=== PATIENT | female | born 1975 | race American Indian/Alaskan Native ===

== ENCOUNTER 2016-07-22 17:20 | Emergency (ER) | payer SELFPAY ==
[2016-07-22 19:55] VITALS: BP 117/82
--- NOTE | 2016-07-22 20:08 | Emergency Department Report ---
- General Chief Complaint: Dizziness Stated Complaint: DIZZINESS Time Seen by Provider: 07/22/16 19:46 Source: patient Mode of arrival: Ambulatory Limitations: No Limitations - History of Present Illness MD Complaint: fever, cough, sore throat, nasal congestion, sinus pain -: Gradual, days(s) Severity: mild Severity scale (0 -10): 3 Worsens With: nothing Context: sick contacts Associated Symptoms: fever, chills, myalgias, headache, rhinorrhea, nasal congestion, sore throat, cough. denies: diaphoresis, chest pain, shortness of breath, abdominal pain, nausea, vomiting, diarrhea - Related Data Previous Rx's Medication Instructions Recorded Last Taken Type Azithromycin [Zithromax Z-SHEY] 250 mg PO QDAY #6 tablet 07/22/16 Unknown Rx Promethazine [Phenergan TAB] 25 mg PO Q8HR PRN #12 tab 07/22/16 Unknown Rx Allergies Allergy/AdvReac Type Severity Reaction Status Date / Time No Known Allergies Allergy Unverified 07/22/16 18:14 ED Review of Systems ROS: Stated complaint: DIZZINESS Other details as noted in HPI Constitutional: chills, fever, malaise Eyes: as per HPI ENT: throat pain Respiratory: cough. denies: shortness of breath, SOB with exertion, SOB at rest Cardiovascular: denies: chest pain, palpitations Endocrine: no symptoms reported Gastrointestinal: denies: abdominal pain, nausea, vomiting, diarrhea Musculoskeletal: myalgia Skin: denies: rash Neurological: headache ED Past Medical Hx - Medications Home Medications: Home Medications Medication Instructions Recorded Confirmed Last Taken Type Azithromycin [Zithromax Z-SHEY] 250 mg PO QDAY #6 tablet 07/22/16 Unknown Rx Promethazine [Phenergan TAB] 25 mg PO Q8HR PRN #12 tab 07/22/16 Unknown Rx ED Physical Exam - General Limitations: No Limitations General appearance: alert, in no apparent distress - Head Head exam: Present: atraumatic, normocephalic - Eye Eye exam: Present: normal appearance, PERRL, EOMI - ENT ENT exam: Present: other - Neck Neck exam: Present: normal inspection. Absent: tenderness (her general erythema ), meningismus, full ROM, lymphadenopathy - Respiratory Respiratory exam: Present: normal lung sounds bilaterally. Absent: respiratory distress, wheezes, rales, rhonchi, stridor - Cardiovascular Cardiovascular Exam: Present: regular rate - Neurological Exam Neurological exam: Present: alert, oriented X3, CN II-XII intact, normal gait ED Course Vital Signs 07/22/16 07/22/16 18:14 19:53 Temperature 98.5 F 98.2 F Pulse Rate 78 80 Respiratory 18 18 Rate Blood Pressure 118/81 Blood Pressure 117/82 [Right] O2 Sat by Pulse 100 100 Oximetry Critical care attestation.: If time is entered above; I have spent that time in minutes in the direct care of this critically ill patient, excluding procedure time. ED Disposition Clinical Impression: URI (upper respiratory infection) Disposition: DISCHARGED TO HOME OR SELFCARE Is pt being admited?: No Condition: Stable Instructions: Upper Respiratory Infection (ED) Prescriptions: Azithromycin [Zithromax Z-SHEY] 250 mg PO QDAY #6 tablet Promethazine [Phenergan TAB] 25 mg PO Q8HR PRN #12 tab PRN Reason: Nausea Referrals: EASTON DUFF MD [Staff Physician] - 3-5 Days
== END 2016-07-22 20:15 | disposition home or self-care (01) ==
LOC: ED 17:20
DX: J06.9 Acute upper respiratory infection, unspecified (principal)
CPT/HCPCS: 99282

== ENCOUNTER 2016-10-27 16:15 | Emergency (ER) | payer SELFPAY ==
[2016-10-27 16:59] LABS: Basophils % (Auto) 0.7 % (0.0-1.8); Eosinophils % (Auto) 3.2 % (0.0-4.3); Hematocrit 37.6 % (30.3-42.9); Hemoglobin 12.5 gm/dl (10.1-14.3); Mean Corpuscular HGB Conc 33 % (30-34); Mean Corpuscular Hemoglobin 29 pg (28-32); Mean Corpuscular Volume 88 fl (79-97); Platelet Count 384 K/mm3 (140-440); Red Blood Count 4.27 M/mm3 (3.65-5.03); Red Cell Distribution Width 13.5 % (13.2-15.2); White Blood Count 4.5 K/mm3 (4.5-11.0)
[2016-10-27 17:05] LABS: Bacteria,Urine 2+ /HPF (Negative); Bilirubin,Urine NEG (Negative); Blood,Urine SM (Negative); Ketones,Urine NEG (Negative); Leukocyte Esterase,Urine LG (Negative); Mucus,Urine FEW /HPF; Nitrite,Urine NEG (Negative); Protein,Urine <15 mg/dL mg/dL (Negative); Urobilinogen,Urine < 2.0 mg/dL (<2.0)
[2016-10-27 17:10] LABS: Alanine Aminotransferase 12 units/L (7-56); Albumin/Globulin Ratio 1.4 %; Alkaline Phosphatase 57 units/L (35-129); Anion Gap 20 mmol/L; BUN/Creatinine Ratio 18.33; Blood Urea Nitrogen 11 mg/dL (7-17); Calcium 9.1 mg/dL (8.4-10.2); Carbon Dioxide 22 mmol/L (22-30); Chloride 101.9 mmol/L (98-107); Glucose 89 mg/dL (65-100); Lipase 31 units/L (13-60); Potassium 4.2 mmol/L (3.6-5.0); Sodium 140 mmol/L (137-145); Total Protein 6.9 g/dL (6.3-8.2)
[2016-10-27] MEDS ORDERED: TORADOL IM ONE (17:19)
--- NOTE | 2016-10-27 17:30 | Emergency Department Report ---
ED Abdominal Pain HPI - General Chief Complaint: Abdominal Pain Stated Complaint: VAGINAL PAIN Time Seen by Provider: 10/27/16 17:07 Source: patient Mode of arrival: Ambulatory Limitations: No Limitations - History of Present Illness Initial Comments: PT states she has multiple complaints. PT states she has had nausea for 1 - 1.5 month. PT states that this is making her only eat 1 meal a day. PT states she has lost weight from not eating. PT states when she eats, she feels full early. PT states she feels bloated and her stomach makes lot of noises in the morning. PT states her last bm was two days ago. PT states that she is anxious and is having trouble sleeping. PT states she is concerned for her overall health. 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 PT c/o foul smelling vaginal discharge x 1 month. PT states she has R sided abd and back pain x 5 days, pain is worse with movement. MD Complaint: flank pain Onset/Timin -: Gradual, days(s) (of flank pain ), month(s) (1 month of nausea and vaginal dc ) Location: R flank Radiation: back Severity scale (0 -10): 8 Quality: fullness Consistency: constant Improves With: nothing Worsens With: movement Associated Symptoms: nausea. denies: vomiting, diarrhea, constipation, dysuria , hematuria - Related Data LMP Date: 10/20/16 Previous Rx's Medication Instructions Recorded Last Taken Type Ibuprofen [Motrin] 600 mg PO Q8H PRN #15 tablet 10/27/16 Unknown Rx Ondansetron [Zofran Odt] 4 mg PO Q8HR PRN #10 tab.rapdis 10/27/16 Unknown Rx methOCARBAMOL [Robaxin TAB] 500 mg PO Q6H PRN #15 tablet 10/27/16 Unknown Rx Allergies Allergy/AdvReac Type Severity Reaction Status Date / Time No Known Allergies Allergy Unverified 07/22/16 18:14 ED Review of Systems ROS: Stated complaint: VAGINAL PAIN Other details as noted in HPI Comment: All other systems reviewed and negative Constitutional: denies: chills, fever Endocrine: increased thirst, increased urine Gastrointestinal: abdominal pain, nausea. denies: vomiting, diarrhea, constipation, hematemesis, melena Genitourinary: discharge, abnormal menses (bloody discharge ). denies: dysuria Musculoskeletal: back pain Skin: denies: rash Psychiatric: anxiety ED Past Medical Hx - Past Medical History Additional medical history: HPV 06/2016 - Surgical History Additional Surgical History: tubiligation - Family History Family history: diabetes (grandfather ) - Social History Smoking Status: Never Smoker Substance Use Type: None - Medications Home Medications: Home Medications Medication Instructions Recorded Confirmed Last Taken Type Ibuprofen [Motrin] 600 mg PO Q8H PRN #15 tablet 10/27/16 Unknown Rx Ondansetron [Zofran Odt] 4 mg PO Q8HR PRN #10 tab.rapdis 10/27/16 Unknown Rx methOCARBAMOL [Robaxin TAB] 500 mg PO Q6H PRN #15 tablet 10/27/16 Unknown Rx ED Physical Exam - General Limitations: No Limitations General appearance: alert, in no apparent distress, obese - Head Head exam: Present: atraumatic, normocephalic, normal inspection - Eye Eye exam: Present: normal appearance, PERRL, EOMI. Absent: conjunctival injection - ENT ENT exam: Present: normal exam, normal orophraynx, normal external ear exam - Neck Neck exam: Present: normal inspection, full ROM - Respiratory Respiratory exam: Present: normal lung sounds bilaterally. Absent: respiratory distress, wheezes, chest wall tenderness, accessory muscle use - Cardiovascular Cardiovascular Exam: Present: regular rate, normal rhythm, normal heart sounds - GI/Abdominal GI/Abdominal exam: Present: soft, hypoactive bowel sounds. 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 Absent: cervical discharge, vaginal bleeding, foreign body, tissue Bi-manual exam: Present: normal bi-manual exam. Absent: cervical motion tendernes, adnexal tenderness, adnexal mass, uterine enlargement, uterine tenderness - Extremities Exam Extremities exam: Present: normal inspection, full ROM - Back Exam Back exam: Present: normal inspection, full ROM. Absent: tenderness, CVA tenderness (R), CVA tenderness (L), muscle spasm, paraspinal tenderness, vertebral tenderness - Neurological Exam Neurological exam: Present: alert, oriented X3 - Psychiatric Psychiatric exam: Present: normal affect, normal mood - Skin Skin exam: Present: warm, dry, intact ED Course Vital Signs 10/27/16 10/27/16 16:22 21:20 Temperature 98.4 F Pulse Rate 93 H 81 Respiratory 18 18 Rate Blood Pressure 128/91 Blood Pressure 125/75 [Left] O2 Sat by Pulse 100 98 Oximetry - Reevaluation(s) Reevaluation #1: 10/27/16 20:38 PT states her lbp resolved sp Toradol. PT aware of lab results. PT aware that no blood was seen on my exam. PT is aware that she will need to follow up with [facility] given her hx of vaginal discharge and abnormal pap due to HPV. PT aware she may need colposcopy. PT verbalizes understanding. PT given strict return precautions. PT has no questions at this time. Reevaluation #2: 10/27/16 21:05 pt declined empiric treatment of gc and ct. PT aware cultures are pending. I did speak with pt about radiology imaging pelvic US and CT. PT offered additional testing and she was made aware of their limitations. Pt declined imaging. Pt aware she will need to follow up with [facility] for further evaluation of her previous abnormal pap. - Pulse Oximetry Interpretation Digit-Finger Initial Pulse Oximetry Readin Actions Taken: none ED Medical Decision Making - Lab Data Result diagrams: 10/27/16 16:29 10/27/16 16:29 Lab Results 10/27/16 10/27/16 10/27/16 Range/Units 16:29 16:29 16:40 WBC 4.5 (4.5-11.0) K/mm3 RBC 4.27 (3.65-5.03) M/mm3 Hgb 12.5 (10.1-14.3) gm/dl Hct 37.6 (30.3-42.9) % MCV 88 (79-97) fl MCH 29 (28-32) pg MCHC 33 (30-34) % RDW 13.5 (13.2-15.2) % Plt Count 384 (140-440) K/mm3 Lymph % (Auto) 33.1 (13.4-35.0) % Dolores % (Auto) 8.2 H (0.0-7.3) % Eos % (Auto) 3.2 (0.0-4.3) % Baso % (Auto) 0.7 (0.0-1.8) % Lymph # 1.5 (1.2-5.4) K/mm3 Dolores # 0.4 (0.0-0.8) K/mm3 Eos # 0.1 (0.0-0.4) K/mm3 Baso # 0.0 (0.0-0.1) K/mm3 Seg Neutrophils % 54.8 (40.0-70.0) % Seg Neutrophils # 2.5 (1.8-7.7) K/mm3 Sodium 140 (137-145) mmol/L Potassium 4.2 (3.6-5.0) mmol/L Chloride 101.9 (98-107) mmol/L Carbon Dioxide 22 (22-30) mmol/L Anion Gap 20 mmol/L BUN 11 (7-17) mg/dL Creatinine 0.6 L (0.7-1.2) mg/dL Estimated GFR > 60 ml/min BUN/Creatinine Ratio 18.33 % Glucose 89 (65-100) mg/dL Calcium 9.1 (8.4-10.2) mg/dL Total Bilirubin 0.30 (0.1-1.2) mg/dL AST 14 (5-40) units/L ALT 12 (7-56) units/L Alkaline Phosphatase 57 (35-129) units/L Total Protein 6.9 (6.3-8.2) g/dL Albumin 4.0 (3.9-5) g/dL Albumin/Globulin Ratio 1.4 % Lipase 31 (13-60) units/L Urine Color Yellow (Yellow) Urine Turbidity Cloudy (Clear) Urine pH 5.0 (5.0-7.0) Ur Specific [place] 1.017 (1.003-1.030) Urine Protein <15 mg/dl (Negative) mg/dL Urine Glucose (UA) Neg (Negative) mg/dL Urine Ketones Neg (Negative) mg/dL Urine Blood Sm (Negative) Urine Nitrite Neg (Negative) Urine Bilirubin Neg (Negative) Urine Urobilinogen < 2.0 (<2.0) mg/dL Ur Leukocyte Esterase Lg (Negative) Urine WBC (Auto) 9.0 H (0.0-6.0) /HPF Urine RBC (Auto) 11.0 (0.0-6.0) /HPF U Epithel Cells (Auto) 21.0 H (0-13.0) /HPF Urine Bacteria (Auto) 2+ (Negative) /HPF Urine Mucus Few /HPF Urine HCG, Qual (Negative) 10/27/16 Range/Units 16:40 WBC (4.5-11.0) K/mm3 RBC (3.65-5.03) M/mm3 Hgb (10.1-14.3) gm/dl Hct (30.3-42.9) % MCV (79-97) fl MCH (28-32) pg MCHC (30-34) % RDW (13.2-15.2) % Plt Count (140-440) K/mm3 Lymph % (Auto) (13.4-35.0) % Dolores % (Auto) (0.0-7.3) % Eos % (Auto) (0.0-4.3) % Baso % (Auto) (0.0-1.8) % Lymph # (1.2-5.4) K/mm3 Dolores # (0.0-0.8) K/mm3 Eos # (0.0-0.4) K/mm3 Baso # (0.0-0.1) K/mm3 Seg Neutrophils % (40.0-70.0) % Seg Neutrophils # (1.8-7.7) K/mm3 Sodium (137-145) mmol/L Potassium (3.6-5.0) mmol/L Chloride (98-107) mmol/L Carbon Dioxide (22-30) mmol/L Anion Gap mmol/L BUN (7-17) mg/dL Creatinine (0.7-1.2) mg/dL Estimated GFR ml/min BUN/Creatinine Ratio % Glucose (65-100) mg/dL Calcium (8.4-10.2) mg/dL Total Bilirubin (0.1-1.2) mg/dL AST (5-40) units/L ALT (7-56) units/L Alkaline Phosphatase (35-129) units/L Total Protein (6.3-8.2) g/dL Albumin (3.9-5) g/dL Albumin/Globulin Ratio % Lipase (13-60) units/L Urine Color (Yellow) Urine Turbidity (Clear) Urine pH (5.0-7.0) Ur Specific [place] (1.003-1.030) Urine Protein (Negative) mg/dL Urine Glucose (UA) (Negative) mg/dL Urine Ketones (Negative) mg/dL Urine Blood (Negative) Urine Nitrite (Negative) Urine Bilirubin (Negative) Urine Urobilinogen (<2.0) mg/dL Ur Leukocyte Esterase (Negative) Urine WBC (Auto) (0.0-6.0) /HPF Urine RBC (Auto) (0.0-6.0) /HPF U Epithel Cells (Auto) (0-13.0) /HPF Urine Bacteria (Auto) (Negative) /HPF Urine Mucus /HPF Urine HCG, Qual Negative (Negative) - Differential Diagnosis uti, , std, cervicitis, fb Critical Care Time: No Critical care attestation.: If time is entered above; I have spent that time in minutes in the direct care of this critically ill patient, excluding procedure time. ED Disposition Clinical Impression: Vaginal discharge, Right flank pain, Nausea Low back pain Qualifiers: Chronicity: acute Back pain laterality: right Sciatica presence: without sciatica Qualified Code(s): M54.5 - Low back pain Disposition: - TO HOME OR SELFCARE Is pt being admited?: No Does the pt Need Aspirin: No Condition: Stable Instructions: Vaginitis (ED), Acute Low Back Pain (ED), Abdominal Pain (ED) Additional Instructions: No driving or Alcohol after taking Robaxin Return to the ED if you develop vomiting, increase in pain, fevers, or concerns k Follow up with [facility] for your hx of abnormal pap Prescriptions: Ibuprofen [Motrin] 600 mg PO Q8H PRN #15 tablet PRN Reason: Pain methOCARBAMOL [Robaxin TAB] 500 mg PO Q6H PRN #15 tablet PRN Reason: Muscle Spasm Ondansetron [Zofran Odt] 4 mg PO Q8HR PRN #10 tab.rapdis PRN Reason: Nausea Referrals: PRIMARY CARE, [Primary Care Provider] - 3-5 Days CARLOS CHESTER JR, MD [Staff Physician] - 3-5 Days [facility] [Outside] - 3-5 Days [facility] [Outside] - 3-5 Days Forms: Work/School Release Form(ED) Time of Disposition: 21:10
[2016-10-28 00:32] VITALS: BP 125/75
== END 2016-10-27 21:20 | disposition home or self-care (01) ==
LOC: ED 16:15
DX: N89.8 Other specified noninflammatory disorders of vagina (principal); R11.0 Nausea; R10.9 Unspecified abdominal pain; M54.5 Low back pain
CPT/HCPCS: 36415; 80053; 81001; 81025; 83690; 85025; 87210; 87591; 96372; 99284; J1885

== ENCOUNTER 2017-11-07 17:42 | Emergency (ER) | payer SELFPAY ==
[2017-11-07 19:35] LABS: Basophils % (Auto) 0.4 % (0.0-1.8); Eosinophils # (Auto) 0.3 K/mm3 (0.0-0.4); Eosinophils % (Auto) 6.1 % (0.0-4.3); Hematocrit 36.5 % (30.3-42.9); Hemoglobin 12.4 gm/dl (10.1-14.3); Lymphocytes # (Auto) 1.5 K/mm3 (1.2-5.4); Lymphocytes % (Auto) 27.6 % (13.4-35.0); Mean Corpuscular HGB Conc 34 % (30-34); Mean Corpuscular Hemoglobin 31 pg (28-32); Mean Corpuscular Volume 90 fl (79-97); Monocytes # (Auto) 0.3 K/mm3 (0.0-0.8); Monocytes % (Auto) 5.8 % (0.0-7.3); Platelet Count 381 K/mm3 (140-440); Red Blood Count 4.06 M/mm3 (3.65-5.03)
[2017-11-07 19:53] LABS: BUN/Creatinine Ratio 20; Blood Urea Nitrogen 10 mg/dL (7-17); Calcium 9.1 mg/dL (8.4-10.2); Hemolysis Index 4
[2017-11-07 22:44] LABS: Bilirubin,Urine NEG (Negative); Blood,Urine NEG (Negative); Color,Urine Yellow (Yellow); Hyaline Casts,Urine 1 /LPF; Mucus,Urine FEW /HPF; Protein,Urine <15 mg/dL mg/dL (Negative); Urobilinogen,Urine < 2.0 mg/dL (<2.0)
[2017-11-08 01:33] LABS: HCG Qualitative,Urine Negative (Negative)
[2017-11-08 01:43] VITALS: BP 99/73
--- NOTE | 2017-11-08 01:44 | Emergency Department Report ---
ED General Adult HPI - General Chief complaint: Chest Pain Stated complaint: SWELLING IN FEET/LEGS Time Seen by Provider: 11/07/17 23:46 Source: patient Mode of arrival: Ambulatory Limitations: No Limitations - History of Present Illness Initial comments: 42-year-old woman presents with multiple chronic problems, but is apparently most concerned about recurrent swelling of her lower extremities over the past week or so, with past similar history over the past several weeks to months intermittently. She reports having had previous evaluation at another emergency department, [facility], with no definitive findings. She has multiple secondary complaints, which she seems to cluster together, but denies specific association, but also reports cough and congestion on an intermittent basis, which has previously been diagnosed with allergies, no distinct feverishness, no sputum production, but she has been on steroids previously, but has been out for several days, and feels that her congestion is increasing. She did not had any nasal congestion, no earache, no sore throat. She had some mild secondary chest discomfort, which appears to be anterior, is not cardiac like, is associated with coughing, and localized her central chest, without radiation, without arm discomfort or jaw discomfort, or back discomfort. Patient does not smoke cigarettes, has no history of asthma, but has been told she may have a pulmonary problem at the other emergency department, was recommended to see a specialist, but has not seen such. She apparently gets most of her care from emergency department. Severity scale (0 -10): 0 - Related Data Previous Rx's Medication Instructions Recorded Last Taken Type Ibuprofen [Motrin] 600 mg PO Q8H PRN #15 tablet 10/27/16 Unknown Rx Ondansetron [Zofran Odt] 4 mg PO Q8HR PRN #10 tab.rapdis 10/27/16 Unknown Rx methOCARBAMOL [Robaxin TAB] 500 mg PO Q6H PRN #15 tablet 10/27/16 Unknown Rx Furosemide [Lasix] 20 mg PO DAILY #7 tablet 11/08/17 Unknown Rx methylPREDNISolone [Medrol Dose 4 mg PO .TAPER #1 pack 11/08/17 Unknown Rx Tommy] Allergies Allergy/AdvReac Type Severity Reaction Status Date / Time No Known Allergies Allergy Verified 11/07/17 18:07 ED Review of Systems ROS: Stated complaint: SWELLING IN FEET/LEGS Other details as noted in HPI Constitutional: fever (intermittent, vague), malaise. denies: chills, diaphoresis, weakness ENT: denies: throat pain Respiratory: cough, shortness of breath, other (some sputum intermittently). denies: wheezing Cardiovascular: chest pain (mild, sutured with cough), edema (lower extremities , recurrent, mild). denies: palpitations, dyspnea on exertion Endocrine: no symptoms reported Gastrointestinal: denies: abdominal pain, nausea, diarrhea Genitourinary: denies: urgency, dysuria, discharge Musculoskeletal: denies: back pain, joint swelling, arthralgia Skin: denies: rash, lesions Neurological: denies: headache, weakness, paresthesias Psychiatric: anxiety. denies: depression Hematological/Lymphatic: denies: easy bleeding, easy bruising ED Past Medical Hx - Past Medical History Previous Medical History?: Yes Hx Asthma: Yes (uncertain, told in another emergency department, no formal diagnosis) Additional medical history: HPV 06/2016 - Surgical History Additional Surgical History: tubal ligation - Social History Smoking Status: Never Smoker Substance Use Type: None - Medications Home Medications: Home Medications Medication Instructions Recorded Confirmed Last Taken Type Ibuprofen [Motrin] 600 mg PO Q8H PRN #15 tablet 10/27/16 Unknown Rx Ondansetron [Zofran Odt] 4 mg PO Q8HR PRN #10 tab.rapdis 10/27/16 Unknown Rx methOCARBAMOL [Robaxin TAB] 500 mg PO Q6H PRN #15 tablet 10/27/16 Unknown Rx Furosemide [Lasix] 20 mg PO DAILY #7 tablet 11/08/17 Unknown Rx methylPREDNISolone [Medrol Dose 4 mg PO .TAPER #1 pack 11/08/17 Unknown Rx Tommy] ED Physical Exam - General Limitations: No Limitations General appearance: alert, in no apparent distress - Head Head exam: Present: atraumatic, normocephalic - Eye Eye exam: Present: PERRL - ENT ENT exam: Present: normal exam, mucous membranes moist - Neck Neck exam: Present: normal inspection, full ROM. Absent: tenderness, thyromegaly - Respiratory Respiratory exam: Present: normal lung sounds bilaterally. Absent: respiratory distress, wheezes, rales, rhonchi, chest wall tenderness - Cardiovascular Cardiovascular Exam: Present: regular rate, normal heart sounds. Absent: systolic murmur, diastolic murmur, JVD - GI/Abdominal GI/Abdominal exam: Present: soft, normal bowel sounds. Absent: tenderness - Rectal Rectal exam: Present: deferred - Extremities Exam Extremities exam: Present: normal inspection, pedal edema (trace, bilateral lower extremities). Absent: joint swelling, calf tenderness - Back Exam Back exam: Present: normal inspection. Absent: tenderness, CVA tenderness (R), CVA tenderness (L) - Neurological Exam Neurological exam: Present: alert, oriented X3, CN II-XII intact. Absent: motor sensory deficit - Psychiatric Psychiatric exam: Present: normal affect, normal mood - Skin Skin exam: Present: warm, dry. Absent: rash, cyanosis, diaphoretic, erythema, vesicles, petechiae, abrasion, ecchymosis ED Course Vital Signs 11/07/17 11/07/17 11/07/17 18:03 22:24 22:26 Temperature 37.0 C Pulse Rate 85 66 Respiratory 18 13 Rate Blood Pressure 119/77 O2 Sat by Pulse 97 100 99 Oximetry 11/07/17 11/07/17 11/07/17 22:28 22:30 22:32 Temperature Pulse Rate 70 69 68 Respiratory 22 20 22 Rate Blood Pressure O2 Sat by Pulse 98 98 98 Oximetry 11/07/17 11/07/17 11/07/17 22:34 22:36 22:38 Temperature Pulse Rate 69 67 69 Respiratory 19 22 23 Rate Blood Pressure 117/77 117/77 117/77 O2 Sat by Pulse 99 98 99 Oximetry 11/07/17 11/07/17 22:40 23:48 Temperature Pulse Rate 64 Respiratory 21 18 Rate Blood Pressure 117/77 O2 Sat by Pulse 98 98 Oximetry ED Medical Decision Making - Lab Data Result diagrams: 11/07/17 19:08 11/07/17 19:08 - EKG Data -: EKG Interpreted by Me (normal EKG) EKG shows normal: sinus rhythm, axis, intervals, QRS complexes, ST-T waves - Radiology Data interpreted by me: Normal chest x-ray, no acute cardiopulmonary abnormality, heart size normal, no lobar infiltrates, no pulmonary vascular congestion. - Medical Decision Making Patient has minor nonspecific symptoms, trace pedal edema, essentially negative laboratory examination, with normal d-dimer and normal BNP, and negative chest x -ray. Symptoms are mostly referable to allergic symptoms, and given that she has been on steroids frequently, may be retaining excess fluids, which may be causing her pedal edema. I will give her a short course of diuretics, will also place her back on another short course of steroids, with referral for primary physician follow-up in a week. - Differential Diagnosis bronchitis, pneumonia, reactive airway disease, chest pain, heart failure Critical Care Time: No Critical care attestation.: If time is entered above; I have spent that time in minutes in the direct care of this critically ill patient, excluding procedure time. ED Disposition Clinical Impression: Pedal edema Allergic symptoms Qualifiers: Encounter type: initial encounter Qualified Code(s): T78.40XA - Allergy, unspecified, initial encounter Disposition: TO HOME OR SELFCARE Is pt being admited?: No Does the pt Need Aspirin: No Condition: Stable Instructions: Allergies (ED) Additional Instructions: Take hydrochlorothiazide once daily for the next week, to decrease swelling of the feet. We believe that he may be retaining excess fluid as result of sodium retention, what can happen when you take steroids regularly. Nonetheless, we have allergic symptoms, and you would likely benefit as well from a short course of steroids to decrease your upper respiratory congestive symptoms, and we're placing you on Medrol Dosepak for a week as well, but for limited time. In order to decrease the chances of recurrent severe edema. Follow-up with a primary care physician, who can see you on a routine basis, rather than getting most of his care in the emergency department, which can be inconsistent due to different doctor Senior each time. Prescriptions: Furosemide [Lasix] 20 mg PO DAILY #7 tablet methylPREDNISolone [Medrol Dose Tommy] 4 mg PO .TAPER #1 pack Referrals: PRIMARY CARE, [Primary Care Provider] - 3-5 Days Time of Disposition: 01:49
--- NOTE | 2017-11-08 02:00 | XRay Report ---
FINAL REPORT PROCEDURE: XR CHEST ROUTINE 2V TECHNIQUE: PA and lateral chest radiographs were obtained. CPT 90439 HISTORY: Cough, congestion. COMPARISON: No prior studies are available for comparison. FINDINGS: Heart: Normal. Mediastinum/Vessels: Normal. Lungs/Pleural space: Normal. Bony thorax: Tiny multilevel osteophytes. Other: IMPRESSION: No radiographic evidence of acute cardiopulmonary disease.
== END 2017-11-08 02:50 | disposition home or self-care (01) ==
LOC: ED 17:42
DX: R60.9 Edema, unspecified (principal); T78.40XA Allergy, unspecified, initial encounter; J45.909 Unspecified asthma, uncomplicated; Z90.49 Acquired absence of other specified parts of digestive tract; X58.XXXA Exposure to other specified factors, initial encounter
CPT/HCPCS: 36415; 71046; 80048; 81001; 81025; 83880; 84484; 85025; 85379; 93005; 93010; 99284